=== PATIENT | female | born 1935 | race Caucasian/White ===

== ENCOUNTER 2021-06-07 13:10 | Inpatient (IN) | payer OTHER, MEDICARE ==
[2021-06-07 14:22] LABS: #Basophils 0.1 10x3/uL (0.0-0.2); #Eosinphils 0.2 10x3/uL (0.0-0.5); #Monocytes 0.3 10x3/uL (0.0-1.1); #Neutrophils 3.2 10x3/uL (1.5-8.4); %Basophils 2.5 % (0.0-2.0); %Eosinophils 4.2 % (0.0-6.0); %Monocytes 6.9 % (0.0-10.0); %Neutrophils 71.2 % (40.0-75.0); Hemoglobin 12.5 g/dL (12.0-15.5); Mean Corpuscular HGB CONC 30.1 g/dL (32.0-36.0); Mean Corpuscular Volume 89.6 fl (81.6-98.3); Platelet Count 85 10x3/uL (150-450); RBC Distribution Width 18.1 % (11.5-14.5); Red Blood Cell (RBC) Count 4.63 10x6/uL (3.90-5.03); White Blood Cell (WBC) Count 4.5 10x3/uL (3.5-10.5)
[2021-06-07 14:28] LABS: ALT (SGPT) 9 U/L (8-55); AST (SGOT) 22 U/L (5-34); Albumin 3.8 g/dL (3.4-4.8); Alkaline Phosphatase 128 U/L (40-110); Anion Gap 14 mmol/L (10-20); BUN (Urea Nitrogen) 32 mg/dL (9.8-20.1); Calc. Creatinine Clearance 0 mL/min (70-130); Calcium 9.6 mg/dL (7.8-10.44); Carbon Dioxide 25 mmol/L (23-31); Chloride 102 mmol/L (98-107); Globulin 3.3 g/dL (2.4-3.5); Glucose 135 mg/dL (83-110); Potassium 5.4 mmol/L (3.5-5.1); Protein, Total 7.1 g/dL (5.8-8.1); Sodium 136 mmol/L (136-145)
[2021-06-07] MEDS ORDERED: predniSONE 20 MG TAB ONE (15:29)
[2021-06-07] MEDS ORDERED: Furosemide 40 MG/4 ML VIAL ONE (15:30)
[2021-06-07] MEDS ORDERED: Gabapentin 300 MG CAP PO PRN (16:06)
[2021-06-07] MEDS ORDERED: Ondansetron PF 4 MG/2 ML Vial IVP PRN (16:10)
[2021-06-07] MEDS: hydrALAZINE 25 MG TAB PO SCH (20:23)
[2021-06-07] MEDS: Melatonin 3 MG TAB PO SCH (20:25)
[2021-06-07] MEDS ORDERED: Losartan Potassium 50 MG TAB PO SCH (21:00)
[2021-06-07 21:29] LABS: SARS-CoV-2 NAA Rapid Test Not Detected (NotDetected)
[2021-06-08] MEDS: Levothyroxine Sodium 75 MCG TAB PO SCH (05:02)
[2021-06-08] MEDS: Furosemide 40 MG/4 ML VIAL SLOW IVP SCH ×2 (05:03→14:22)
[2021-06-08 05:13] LABS: #Monocytes 0.1 10x3/uL (0.0-1.1); #Neutrophils 1.6 10x3/uL (1.5-8.4); %Eosinophils 0.5 % (0.0-6.0); %Lymphocytes 15.3 % (18.0-47.0); %Monocytes 2.6 % (0.0-10.0); %Neutrophils 79.6 % (40.0-75.0); Hemoglobin 12.6 g/dL (12.0-15.5); Mean Corpuscular Hemoglobin 27.1 pg (27.0-33.0); Mean Corpuscular Volume 87.5 fl (81.6-98.3); Mean Platelet Volume 11.2 fl (7.4-10.4); Platelet Count 94 10x3/uL (150-450); RBC Distribution Width 18.2 % (11.5-14.5); Red Blood Cell (RBC) Count 4.65 10x6/uL (3.90-5.03)
[2021-06-08 05:19] LABS: Anion Gap 13 mmol/L (10-20); BUN (Urea Nitrogen) 31 mg/dL (9.8-20.1); Calc. Creatinine Clearance 24 mL/min (70-130); Calcium 8.9 mg/dL (7.8-10.44); Carbon Dioxide 26 mmol/L (23-31); Chloride 102 mmol/L (98-107); Glucose 177 mg/dL (83-110); Potassium 5.4 mmol/L (3.5-5.1); Sodium 136 mmol/L (136-145)
[2021-06-08] MEDS ORDERED: hydrALAZINE 20 MG/ML VIAL SLOW IVP PRN (08:24)
[2021-06-08] MEDS ORDERED: Amlodipine 5 MG TAB PO SCH (09:00)
[2021-06-08] MEDS ORDERED: Dextrose 5% in Water 1,000 ML IV PRN (10:48)
[2021-06-08] MEDS ORDERED: Dextrose 50% Abboject 50 ML SYRINGE SLOW IVP PRN (10:48)
[2021-06-08] MEDS: hydrALAZINE 25 MG TAB PO SCH ×2 (11:33→21:10)
[2021-06-08] MEDS: Atorvastatin Calcium 40 MG TAB PO SCH (11:39)
[2021-06-08] MEDS: Aspirin 81 mg Enteric Coated Tablet PO SCH (11:40)
[2021-06-08] MEDS: Lidocaine 5% Patch TD SCH (11:41)
[2021-06-08] MEDS: methylPREDNISolone Sod Succ 40 MG VIAL IVP SCH ×3 (11:58→23:18)
[2021-06-08] MEDS ORDERED: methylPREDNISolone Sod Succ 40 MG VIAL IVP SCH (12:00)
[2021-06-08] MEDS: HYDROcodone/Acetaminophen 5/325 mg Tablet PO PRN (14:22)
[2021-06-08] MEDS ORDERED: hydrALAZINE 25 MG TAB PO SCH (14:30)
[2021-06-08 16:41] LABS: Potassium 5.3 mmol/L (3.5-5.1)
[2021-06-08 20:26] LABS: Anion Gap 18 mmol/L (10-20); BUN (Urea Nitrogen) 36 mg/dL (9.8-20.1); Calc. Creatinine Clearance 21 mL/min (70-130); Calcium 9.5 mg/dL (7.8-10.44); Carbon Dioxide 26 mmol/L (23-31); Chloride 96 mmol/L (98-107); Glucose 239 mg/dL (83-110); Potassium 5.2 mmol/L (3.5-5.1); Sodium 135 mmol/L (136-145)
[2021-06-08] MEDS: Melatonin 3 MG TAB PO SCH (21:10)
[2021-06-08] MEDS: Transdermal Patch Removal TOP SCH (21:17)
[2021-06-08] MEDS: HumaLOG 300 UNITS/3 ML VIAL SC PRN (21:49)
[2021-06-09 00:09] LABS: Anion Gap 15 mmol/L (10-20); BUN (Urea Nitrogen) 37 mg/dL (9.8-20.1); Calc. Creatinine Clearance 22 mL/min (70-130); Calcium 9.3 mg/dL (7.8-10.44); Carbon Dioxide 28 mmol/L (23-31); Chloride 97 mmol/L (98-107); Glucose 182 mg/dL (83-110); Potassium 4.9 mmol/L (3.5-5.1); Sodium 135 mmol/L (136-145)
[2021-06-09] MEDS: Acetaminophen 325 MG TAB PO PRN (03:11)
[2021-06-09 05:04] LABS: #Monocytes 0.1 10x3/uL (0.0-1.1); #Neutrophils 2.3 10x3/uL (1.5-8.4); %Monocytes 1.9 % (0.0-10.0); %Neutrophils 84.7 % (40.0-75.0); Hemoglobin 13.4 g/dL (12.0-15.5); Mean Corpuscular Hemoglobin 27.2 pg (27.0-33.0); Mean Platelet Volume 11.4 fl (7.4-10.4); Platelet Count 121 10x3/uL (150-450); RBC Distribution Width 18.7 % (11.5-14.5); Red Blood Cell (RBC) Count 4.93 10x6/uL (3.90-5.03); White Blood Cell (WBC) Count 2.7 10x3/uL (3.5-10.5)
[2021-06-09 05:07] LABS: Anion Gap 18 mmol/L (10-20); BUN (Urea Nitrogen) 35 mg/dL (9.8-20.1); Calc. Creatinine Clearance 25 mL/min (70-130); Calcium 8.9 mg/dL (7.8-10.44); Carbon Dioxide 23 mmol/L (23-31); Chloride 98 mmol/L (98-107); Glucose 149 mg/dL (83-110); Potassium 4.2 mmol/L (3.5-5.1); Sodium 135 mmol/L (136-145)
[2021-06-09] MEDS: Levothyroxine Sodium 75 MCG TAB PO SCH (05:12)
[2021-06-09] MEDS: Furosemide 40 MG/4 ML VIAL SLOW IVP SCH ×2 (05:14→14:03)
[2021-06-09] MEDS: methylPREDNISolone Sod Succ 40 MG VIAL IVP SCH ×3 (05:15→18:10)
[2021-06-09 05:46] VITALS: BMI 25.2
[2021-06-09] MEDS: hydrALAZINE 25 MG TAB PO SCH ×2 (08:29→15:19)
[2021-06-09] MEDS: Amlodipine 10 MG TAB PO SCH (08:29)
[2021-06-09] MEDS: Aspirin 81 mg Enteric Coated Tablet PO SCH (08:29)
[2021-06-09] MEDS: HYDROcodone/Acetaminophen 5/325 mg Tablet PO PRN (08:29)
[2021-06-09] MEDS: Atorvastatin Calcium 40 MG TAB PO SCH (08:29)
[2021-06-09] MEDS: Lidocaine 5% Patch TD SCH (08:30)
[2021-06-09] MEDS: HumaLOG 300 UNITS/3 ML VIAL SC PRN ×2 (11:55→18:09)
[2021-06-09 12:46] LABS: Hemoglobin A1c 6.5 % (4.0-6.0)
[2021-06-09] MEDS: Melatonin 3 MG TAB PO SCH (20:39)
[2021-06-09] MEDS: Transdermal Patch Removal TOP SCH (21:02)
[2021-06-10] MEDS: methylPREDNISolone Sod Succ 40 MG VIAL IVP SCH ×2 (00:03→05:45)
[2021-06-10] MEDS: hydrALAZINE 25 MG TAB PO SCH ×4 (00:38→16:07)
[2021-06-10] MEDS: Acetaminophen 325 MG TAB PO PRN (01:33)
[2021-06-10 04:57] LABS: #Monocytes 0.1 10x3/uL (0.0-1.1); #Neutrophils 3.8 10x3/uL (1.5-8.4); %Lymphocytes 6.5 % (18.0-47.0); %Monocytes 1.4 % (0.0-10.0); %Neutrophils 91.4 % (40.0-75.0); Hemoglobin 13.2 g/dL (12.0-15.5); Mean Corpuscular HGB CONC 32.5 g/dL (32.0-36.0); Mean Corpuscular Hemoglobin 26.9 pg (27.0-33.0); Mean Corpuscular Volume 82.9 fl (81.6-98.3); Mean Platelet Volume 10.4 fl (7.4-10.4); Platelet Count 137 10x3/uL (150-450); RBC Distribution Width 18.1 % (11.5-14.5); White Blood Cell (WBC) Count 4.2 10x3/uL (3.5-10.5)
[2021-06-10 05:17] LABS: Anion Gap 17 mmol/L (10-20); BUN (Urea Nitrogen) 47 mg/dL (9.8-20.1); Calc. Creatinine Clearance 22 mL/min (70-130); Carbon Dioxide 26 mmol/L (23-31); Chloride 95 mmol/L (98-107); Glucose 176 mg/dL (83-110); Potassium 3.3 mmol/L (3.5-5.1); Sodium 135 mmol/L (136-145)
[2021-06-10] MEDS: Furosemide 40 MG/4 ML VIAL SLOW IVP SCH (05:45)
[2021-06-10] MEDS: HumaLOG 300 UNITS/3 ML VIAL SC PRN ×2 (05:45→12:17)
[2021-06-10] MEDS: Levothyroxine Sodium 75 MCG TAB PO SCH (05:45)
[2021-06-10] MEDS: Atorvastatin Calcium 40 MG TAB PO SCH (09:36)
[2021-06-10] MEDS: Lidocaine 5% Patch TD SCH (09:36)
[2021-06-10] MEDS: Amlodipine 10 MG TAB PO SCH (09:36)
[2021-06-10] MEDS: Aspirin 81 mg Enteric Coated Tablet PO SCH (09:36)
[2021-06-10 15:16] VITALS: BP 113/58; TEMP 98.7
[2021-06-11] MEDS ORDERED: Furosemide 40 MG TAB PO SCH (07:30)
[2021-06-11] MEDS ORDERED: predniSONE 20 MG TAB PO SCH (08:00)
== END 2021-06-10 18:00 | disposition home health service (06) | DRG 291 ==
LOC: CSHERS 13:10 → CSHTELE 16:40
PROVIDERS: ADMIT Internal Medicine; ATTEND Hospitalist
DX: I13.0 Hypertensive heart and chronic kidney disease with heart failure and stage 1 through stage 4 chronic kidney disease, or unspecified chronic kidney disease (principal); J96.21 Acute and chronic respiratory failure with hypoxia; I50.33 Acute on chronic diastolic (congestive) heart failure; J44.1 Chronic obstructive pulmonary disease with (acute) exacerbation; N18.4 Chronic kidney disease, stage 4 (severe); N17.9 Acute kidney failure, unspecified; E78.5 Hyperlipidemia, unspecified; E11.22 Type 2 diabetes mellitus with diabetic chronic kidney disease; G89.29 Other chronic pain; M19.90 Unspecified osteoarthritis, unspecified site; I25.10 Atherosclerotic heart disease of native coronary artery without angina pectoris; R21 Rash and other nonspecific skin eruption; S81.802A Unspecified open wound, left lower leg, initial encounter; S81.801A Unspecified open wound, right lower leg, initial encounter; M54.9 Dorsalgia, unspecified; D63.1 Anemia in chronic kidney disease; F17.210 Nicotine dependence, cigarettes, uncomplicated; E78.2 Mixed hyperlipidemia; Z96.642 Presence of left artificial hip joint; E03.9 Hypothyroidism, unspecified; M81.0 Age-related osteoporosis without current pathological fracture; Z20.822 Contact with and (suspected) exposure to COVID-19; Z90.49 Acquired absence of other specified parts of digestive tract; Z79.82 Long term (current) use of aspirin; Z79.899 Other long term (current) drug therapy; Z79.891 Long term (current) use of opiate analgesic; Z79.890 Hormone replacement therapy; Z90.710 Acquired absence of both cervix and uterus; Z90.89 Acquired absence of other organs; Z86.73 Personal history of transient ischemic attack (TIA), and cerebral infarction without residual deficits; Z82.49 Family history of ischemic heart disease and other diseases of the circulatory system; Z98.890 Other specified postprocedural states; Z99.81 Dependence on supplemental oxygen
CPT/HCPCS: 36415; 36416; 71045; 80048; 80053; 83036; 83605; 83880; 84484; 85025; 93005; 93306; 94640; 94760; 96374; J1815; J1940; J2405; J2920; J7512; J7620; U0002

== ENCOUNTER 2021-07-27 12:02 | Inpatient (IN) | payer MEDICARE, OTHER ==
[2021-07-27 12:52] LABS: #Basophils 0.1 10x3/uL (0.0-0.2); #Eosinphils 0.1 10x3/uL (0.0-0.5); #Monocytes 0.3 10x3/uL (0.0-1.1); #Neutrophils 2.2 10x3/uL (1.5-8.4); %Basophils 2.4 % (0.0-2.0); %Eosinophils 2.7 % (0.0-6.0); %Lymphocytes 26.6 % (18.0-47.0); %Monocytes 8.6 % (0.0-10.0); %Neutrophils 58.9 % (40.0-75.0); Hemoglobin 10.8 g/dL (12.0-15.5); Mean Corpuscular HGB CONC 32.1 g/dL (32.0-36.0); Mean Corpuscular Hemoglobin 27.4 pg (27.0-33.0); Mean Corpuscular Volume 85.3 fl (81.6-98.3); Platelet Count 104 10x3/uL (150-450); RBC Distribution Width 18.4 % (11.5-14.5); Red Blood Cell (RBC) Count 3.94 10x6/uL (3.90-5.03); White Blood Cell (WBC) Count 3.7 10x3/uL (3.5-10.5)
[2021-07-27 13:04] LABS: ALT (SGPT) 11 U/L (8-55); AST (SGOT) 19 U/L (5-34); Albumin 3.7 g/dL (3.4-4.8); Alkaline Phosphatase 126 U/L (40-110); Anion Gap 18 mmol/L (10-20); BUN (Urea Nitrogen) 52 mg/dL (9.8-20.1); Bilirubin, Total 0.8 mg/dL (0.2-1.2); Calc. Creatinine Clearance 0 mL/min (70-130); Calcium 8.8 mg/dL (7.8-10.44); Carbon Dioxide 22 mmol/L (23-31); Chloride 100 mmol/L (98-107); Globulin 2.4 g/dL (2.4-3.5); Glucose 112 mg/dL (83-110); Potassium 5.1 mmol/L (3.5-5.1); Protein, Total 6.1 g/dL (5.8-8.1); Sodium 135 mmol/L (136-145)
[2021-07-27 13:59] LABS: Magnesium 1.4 mg/dL (1.6-2.6)
[2021-07-27] MEDS ORDERED: Acetaminophen 325 MG TAB PO PRN (14:17)
[2021-07-27] MEDS ORDERED: Ondansetron PF 4 MG/2 ML Vial IVP PRN (14:17)
[2021-07-27] MEDS ORDERED: Ondansetron ODT 4 MG TAB PO PRN (14:17)
[2021-07-27] MEDS ORDERED: Furosemide 40 MG/4 ML VIAL ONE (14:29)
[2021-07-27] MEDS ORDERED: Magnesium 2 GM/50 ML(in water) 2 GM in Premix Bag 1 BAG IVPB SCH (15:00)
[2021-07-27] MEDS: Gabapentin 300 MG CAP PO SCH ×2 (15:47→20:28)
[2021-07-28 00:20] LABS: SARS-CoV-2 PCR by NAA Not Detected (NotDetected)
[2021-07-28 05:16] LABS: #Basophils 0.1 10x3/uL (0.0-0.2); #Eosinphils 0.1 10x3/uL (0.0-0.5); #Monocytes 0.3 10x3/uL (0.0-1.1); %Basophils 2.7 % (0.0-2.0); %Eosinophils 2.9 % (0.0-6.0); %Lymphocytes 32.4 % (18.0-47.0); %Monocytes 7.8 % (0.0-10.0); Hemoglobin 10.4 g/dL (12.0-15.5); Mean Corpuscular HGB CONC 32.2 g/dL (32.0-36.0); Mean Corpuscular Hemoglobin 27.5 pg (27.0-33.0); Mean Corpuscular Volume 85.4 fl (81.6-98.3); Mean Platelet Volume 10.6 fl (7.4-10.4); Platelet Count 122 10x3/uL (150-450); RBC Distribution Width 18.6 % (11.5-14.5); Red Blood Cell (RBC) Count 3.78 10x6/uL (3.90-5.03); White Blood Cell (WBC) Count 3.7 10x3/uL (3.5-10.5)
[2021-07-28 05:17] LABS: %Neutrophils 54.2 % (40.0-75.0)
[2021-07-28 05:25] LABS: Anion Gap 15 mmol/L (10-20); BUN (Urea Nitrogen) 48 mg/dL (9.8-20.1); Calc. Creatinine Clearance 18 mL/min (70-130); Calcium 8.7 mg/dL (7.8-10.44); Carbon Dioxide 26 mmol/L (23-31); Chloride 100 mmol/L (98-107); Glucose 98 mg/dL (83-110); Magnesium 1.8 mg/dL (1.6-2.6); Potassium 4.4 mmol/L (3.5-5.1); Sodium 137 mmol/L (136-145)
[2021-07-28] MEDS ORDERED: Levothyroxine Sodium 88 MCG TAB PO SCH (06:00)
[2021-07-28] MEDS ORDERED: Furosemide 40 MG/4 ML VIAL SLOW IVP SCH (09:00)
[2021-07-28] MEDS: Atorvastatin Calcium 40 MG TAB PO SCH (09:16)
[2021-07-28] MEDS: Furosemide 40 MG/4 ML VIAL SLOW IVP SCH (09:16)
[2021-07-28] MEDS: Aspirin 81 mg Enteric Coated Tablet PO SCH (09:16)
[2021-07-28] MEDS: Gabapentin 300 MG CAP PO SCH ×3 (09:16→20:16)
[2021-07-28] MEDS ORDERED: hydrALAZINE 20 MG/ML VIAL SLOW IVP PRN (12:12)
[2021-07-28 12:45] LABS: Base Excess (BEa) -0.9 mEq/L (-2.0 to +3.0); CO2 Tension 41.1 mmHg (35.0-45.0); Calcium, Ionized (arterial) 1.16 mmol/L (1.12-1.30); Carboxyhemoglobin (COHb) 1.1 gm% (0.0-3.0); Hemoglobin (Hb) 11.8 g/dL (12.0-16.0); O2 Tension (PaO2), arterial 80.1 mmHg (> 60.0); Potassium - ABG Lab 4.3 mmol/L (3.70-5.30); Puncture Site LBA; pH, Arterial 7.39 (7.35-7.45)
[2021-07-28 12:50] LABS: ALV-art Gradient 96.685 mmHg (0-20)
[2021-07-28] MEDS ORDERED: methylPREDNISolone Sod Succ/PF 125 MG/2 ML VIAL IVP SCH (13:00)
[2021-07-28] MEDS: hydrALAZINE 25 MG TAB PO SCH ×2 (15:54→20:15)
[2021-07-28] MEDS: methylPREDNISolone Sod Succ 40 MG VIAL IVP SCH ×2 (17:46→23:59)
[2021-07-29] MEDS: Levothyroxine Sodium 75 MCG TAB PO SCH (05:12)
[2021-07-29] MEDS: methylPREDNISolone Sod Succ 40 MG VIAL IVP SCH ×3 (05:12→18:40)
[2021-07-29 05:23] LABS: Anion Gap 14 mmol/L (10-20); BUN (Urea Nitrogen) 40 mg/dL (9.8-20.1); Calc. Creatinine Clearance 23 mL/min (70-130); Calcium 8.8 mg/dL (7.8-10.44); Carbon Dioxide 25 mmol/L (23-31); Chloride 100 mmol/L (98-107); Glucose 186 mg/dL (83-110); Potassium 4.3 mmol/L (3.5-5.1); Sodium 135 mmol/L (136-145)
[2021-07-29 05:31] LABS: %Lymphocytes 21.9 % (18.0-47.0); %Monocytes 1.3 % (0.0-10.0); Hemoglobin 12.3 g/dL (12.0-15.5); Mean Corpuscular HGB CONC 32.6 g/dL (32.0-36.0); Mean Corpuscular Hemoglobin 27.3 pg (27.0-33.0); Mean Corpuscular Volume 83.8 fl (81.6-98.3); Mean Platelet Volume 10.6 fl (7.4-10.4); Platelet Count 132 10x3/uL (150-450); RBC Distribution Width 18.5 % (11.5-14.5); White Blood Cell (WBC) Count 1.6 10x3/uL (3.5-10.5)
[2021-07-29 05:41] LABS: #Neutrophils 1.2 10x3/uL (1.5-8.4); %Neutrophils 76.8 % (40.0-75.0)
[2021-07-29] MEDS: Atorvastatin Calcium 40 MG TAB PO SCH (08:07)
[2021-07-29] MEDS: Furosemide 40 MG/4 ML VIAL SLOW IVP SCH (08:07)
[2021-07-29] MEDS: hydrALAZINE 25 MG TAB PO SCH ×3 (08:07→16:43)
[2021-07-29] MEDS: Amlodipine 10 MG TAB PO SCH (08:10)
[2021-07-29] MEDS: Gabapentin 300 MG CAP PO SCH ×3 (08:11→21:36)
[2021-07-29] MEDS: Aspirin 81 mg Enteric Coated Tablet PO SCH (08:11)
[2021-07-29 13:20] VITALS: BMI 24.5
[2021-07-30] MEDS: hydrALAZINE 25 MG TAB PO SCH ×3 (00:28→16:09)
[2021-07-30] MEDS: methylPREDNISolone Sod Succ 40 MG VIAL IVP SCH ×5 (00:50→23:32)
[2021-07-30 05:32] LABS: #Monocytes 0.1 10x3/uL (0.0-1.1); #Neutrophils 2.9 10x3/uL (1.5-8.4); %Monocytes 1.5 % (0.0-10.0); %Neutrophils 87.2 % (40.0-75.0); Hemoglobin 11.8 g/dL (12.0-15.5); Mean Corpuscular HGB CONC 32.7 g/dL (32.0-36.0); Mean Corpuscular Hemoglobin 27.2 pg (27.0-33.0); Mean Corpuscular Volume 83.2 fl (81.6-98.3); Mean Platelet Volume 9.9 fl (7.4-10.4); Platelet Count 138 10x3/uL (150-450); RBC Distribution Width 18.6 % (11.5-14.5); Red Blood Cell (RBC) Count 4.34 10x6/uL (3.90-5.03); White Blood Cell (WBC) Count 3.3 10x3/uL (3.5-10.5)
[2021-07-30 05:40] LABS: Anion Gap 13 mmol/L (10-20); BUN (Urea Nitrogen) 39 mg/dL (9.8-20.1); Calc. Creatinine Clearance 25 mL/min (70-130); Calcium 8.7 mg/dL (7.8-10.44); Carbon Dioxide 28 mmol/L (23-31); Chloride 98 mmol/L (98-107); Glucose 182 mg/dL (83-110); Potassium 4.1 mmol/L (3.5-5.1); Sodium 135 mmol/L (136-145)
[2021-07-30] MEDS: Levothyroxine Sodium 75 MCG TAB PO SCH (05:59)
[2021-07-30] MEDS: Furosemide 40 MG/4 ML VIAL SLOW IVP SCH (08:27)
[2021-07-30] MEDS: Gabapentin 300 MG CAP PO SCH ×3 (08:27→21:05)
[2021-07-30] MEDS: Amlodipine 10 MG TAB PO SCH (08:28)
[2021-07-30] MEDS: Aspirin 81 mg Enteric Coated Tablet PO SCH (08:28)
[2021-07-30] MEDS: Atorvastatin Calcium 40 MG TAB PO SCH (08:31)
[2021-07-30] MEDS ORDERED: Calcium Carbonate 500 MG ChewTAB PO PRN (18:48)
[2021-07-30] MEDS ORDERED: Famotidine 20 MG TAB PO SCH (21:00)
[2021-07-30] MEDS: Famotidine 20 MG TAB PO SCH ×2 (21:05→22:18)
[2021-07-31] MEDS: hydrALAZINE 25 MG TAB PO SCH ×4 (01:22→20:46)
[2021-07-31] MEDS ORDERED: Melatonin 3 MG TAB PO SCH (02:30)
[2021-07-31] MEDS: Levothyroxine Sodium 75 MCG TAB PO SCH (06:14)
[2021-07-31] MEDS: methylPREDNISolone Sod Succ 40 MG VIAL IVP SCH ×2 (07:00→18:01)
[2021-07-31] MEDS: Atorvastatin Calcium 40 MG TAB PO SCH (10:49)
[2021-07-31] MEDS: Gabapentin 300 MG CAP PO SCH ×3 (10:49→20:45)
[2021-07-31] MEDS: Furosemide 20 MG TAB PO SCH (10:49)
[2021-07-31] MEDS: Amlodipine 10 MG TAB PO SCH (10:50)
[2021-07-31] MEDS: Empagliflozin 10 MG TAB PO SCH (10:50)
[2021-07-31] MEDS: Aspirin 81 mg Enteric Coated Tablet PO SCH (10:50)
[2021-07-31] MEDS: Famotidine 20 MG TAB PO SCH (18:33)
[2021-08-01] MEDS: methylPREDNISolone Sod Succ 40 MG VIAL IVP SCH ×4 (01:45→21:42)
[2021-08-01] MEDS: Levothyroxine Sodium 75 MCG TAB PO SCH (05:40)
[2021-08-01] MEDS: Furosemide 20 MG TAB PO SCH (08:58)
[2021-08-01] MEDS: Atorvastatin Calcium 40 MG TAB PO SCH (08:58)
[2021-08-01] MEDS: hydrALAZINE 25 MG TAB PO SCH ×3 (08:58→21:42)
[2021-08-01] MEDS: Amlodipine 10 MG TAB PO SCH (08:59)
[2021-08-01] MEDS: Aspirin 81 mg Enteric Coated Tablet PO SCH (08:59)
[2021-08-01] MEDS: Gabapentin 300 MG CAP PO SCH ×3 (08:59→21:42)
[2021-08-01] MEDS: Empagliflozin 10 MG TAB PO SCH (09:01)
[2021-08-01] MEDS ORDERED: Melatonin 3 MG TAB PO PRN (20:43)
[2021-08-01] MEDS: Famotidine 20 MG TAB PO SCH (21:42)
[2021-08-02] MEDS: methylPREDNISolone Sod Succ 40 MG VIAL IVP SCH (06:21)
[2021-08-02] MEDS: Levothyroxine Sodium 75 MCG TAB PO SCH (06:21)
[2021-08-02 10:03] LABS: Anion Gap 15 mmol/L (10-20); BUN (Urea Nitrogen) 48 mg/dL (9.8-20.1); Calc. Creatinine Clearance 26 mL/min (70-130); Calcium 8.7 mg/dL (7.8-10.44); Carbon Dioxide 26 mmol/L (23-31); Chloride 98 mmol/L (98-107); Glucose 222 mg/dL (83-110); Potassium 4.1 mmol/L (3.5-5.1); Sodium 135 mmol/L (136-145)
[2021-08-02] MEDS: hydrALAZINE 25 MG TAB PO SCH (10:09)
[2021-08-02] MEDS: Aspirin 81 mg Enteric Coated Tablet PO SCH (10:09)
[2021-08-02] MEDS: Furosemide 20 MG TAB PO SCH (10:09)
[2021-08-02] MEDS: Atorvastatin Calcium 40 MG TAB PO SCH (10:09)
[2021-08-02] MEDS: Empagliflozin 10 MG TAB PO SCH (10:10)
[2021-08-02] MEDS: Amlodipine 10 MG TAB PO SCH (10:10)
[2021-08-02] MEDS: Gabapentin 300 MG CAP PO SCH (10:10)
[2021-08-02 12:06] VITALS: BP 130/59; TEMP 98.7
== END 2021-08-02 13:23 | DRG 291 ==
LOC: CSHERS 12:02 → CSHTELE 13:50 → OBSVTOIN 16:02
PROVIDERS: ADMIT Internal Medicine; ATTEND Internal Medicine
DX: I13.0 Hypertensive heart and chronic kidney disease with heart failure and stage 1 through stage 4 chronic kidney disease, or unspecified chronic kidney disease (principal); I50.33 Acute on chronic diastolic (congestive) heart failure; J96.21 Acute and chronic respiratory failure with hypoxia; J44.1 Chronic obstructive pulmonary disease with (acute) exacerbation; N17.9 Acute kidney failure, unspecified; N18.30 Chronic kidney disease, stage 3 unspecified; I25.10 Atherosclerotic heart disease of native coronary artery without angina pectoris; E78.5 Hyperlipidemia, unspecified; D63.1 Anemia in chronic kidney disease; E87.8 Other disorders of electrolyte and fluid balance, not elsewhere classified; E11.22 Type 2 diabetes mellitus with diabetic chronic kidney disease; D69.6 Thrombocytopenia, unspecified; M81.0 Age-related osteoporosis without current pathological fracture; K21.9 Gastro-esophageal reflux disease without esophagitis; R94.31 Abnormal electrocardiogram [ECG] [EKG]; G89.29 Other chronic pain; E89.0 Postprocedural hypothyroidism; I07.1 Rheumatic tricuspid insufficiency; F17.210 Nicotine dependence, cigarettes, uncomplicated; I27.20 Pulmonary hypertension, unspecified; Z96.642 Presence of left artificial hip joint; Z20.822 Contact with and (suspected) exposure to COVID-19; Z60.2 Problems related to living alone; Z99.81 Dependence on supplemental oxygen; Z79.899 Other long term (current) drug therapy; Z86.73 Personal history of transient ischemic attack (TIA), and cerebral infarction without residual deficits; Z79.890 Hormone replacement therapy; Z79.891 Long term (current) use of opiate analgesic; Z79.84 Long term (current) use of oral hypoglycemic drugs; Z79.82 Long term (current) use of aspirin; Z90.49 Acquired absence of other specified parts of digestive tract; Z90.710 Acquired absence of both cervix and uterus; Z98.890 Other specified postprocedural states; Z82.49 Family history of ischemic heart disease and other diseases of the circulatory system
CPT/HCPCS: 36415; 36416; 36600; 71045; 80048; 80053; 82805; 83735; 83880; 84484; 85025; 93005; 93010; 94640; 94760; 96374; G0378; J0360; J1940; J2920; J2930; J3475; J7620; U0003; U0005

== ENCOUNTER 2021-08-05 14:03 | Inpatient (IN) | payer OTHER ==
[2021-08-05] MEDS ORDERED: Acetaminophen 325 MG TAB PO PRN (16:27)
[2021-08-05] MEDS ORDERED: Ondansetron PF 4 MG/2 ML Vial IVP PRN (16:27)
[2021-08-05] MEDS ORDERED: Acetaminophen 650 MG Suppository PR PRN (16:27)
[2021-08-05] MEDS ORDERED: Ondansetron ODT 4 MG TAB PO PRN (16:27)
[2021-08-05] MEDS ORDERED: Dextrose 50% Abboject 50 ML SYRINGE SLOW IVP PRN (17:19)
[2021-08-05] MEDS ORDERED: Insulin Regular 300 UNITS/3 ML VIAL SC PRN (17:19)
[2021-08-05] MEDS ORDERED: Dextrose 5% in Water 1,000 ML IV PRN (17:19)
[2021-08-05] MEDS: Sodium Chloride 0.9% 1,000 ML IV SCH (18:00)
[2021-08-05 18:27] LABS: #Eosinphils 0.1 10x3/uL (0.0-0.5); #Monocytes 0.4 10x3/uL (0.0-1.1); %Basophils 0.1 % (0.0-2.0); %Eosinophils 1.2 % (0.0-6.0); %Lymphocytes 20.6 % (18.0-47.0); %Monocytes 5.7 % (0.0-10.0); %Neutrophils 72.3 % (40.0-75.0); Anion Gap 17 mmol/L (10-20); BUN (Urea Nitrogen) 54 mg/dL (9.8-20.1); Calc. Creatinine Clearance 0 mL/min (70-130); Calcium 8.7 mg/dL (7.8-10.44); Carbon Dioxide 23 mmol/L (23-31); Chloride 104 mmol/L (98-107); Glucose 106 mg/dL (83-110); Hemoglobin 9.6 g/dL (12.0-15.5); Mean Corpuscular Hemoglobin 26.4 pg (27.0-33.0); Mean Corpuscular Volume 87.9 fl (81.6-98.3); Mean Platelet Volume 10.2 fl (7.4-10.4); Platelet Count 117 10x3/uL (150-450); Potassium 4.1 mmol/L (3.5-5.1); RBC Distribution Width 17.4 % (11.5-14.5); Red Blood Cell (RBC) Count 3.64 10x6/uL (3.90-5.03); Sodium 140 mmol/L (136-145); White Blood Cell (WBC) Count 6.9 10x3/uL (3.5-10.5)
[2021-08-05] MEDS: Pantoprazole 40 MG VIAL IVP SCH (20:32)
[2021-08-05 20:52] VITALS: BMI 22.8
[2021-08-05 22:51] LABS: Hemoglobin 8.3 g/dL (12.0-15.5)
[2021-08-06 02:54] LABS: SARS-CoV-2 NAA Rapid Test Not Detected (NotDetected)
[2021-08-06 05:06] LABS: #Eosinphils 0.1 10x3/uL (0.0-0.5); #Monocytes 0.3 10x3/uL (0.0-1.1); #Neutrophils 4.2 10x3/uL (1.5-8.4); %Eosinophils 2.5 % (0.0-6.0); %Lymphocytes 16.4 % (18.0-47.0); %Monocytes 5.5 % (0.0-10.0); %Neutrophils 75.2 % (40.0-75.0); Hemoglobin 8.2 g/dL (12.0-15.5); Mean Corpuscular Hemoglobin 26.6 pg (27.0-33.0); Mean Corpuscular Volume 88.6 fl (81.6-98.3); Mean Platelet Volume 10.8 fl (7.4-10.4); Platelet Count 107 10x3/uL (150-450); RBC Distribution Width 17.5 % (11.5-14.5); Red Blood Cell (RBC) Count 3.08 10x6/uL (3.90-5.03); White Blood Cell (WBC) Count 5.6 10x3/uL (3.5-10.5)
[2021-08-06 05:19] LABS: Anion Gap 14 mmol/L (10-20); BUN (Urea Nitrogen) 46 mg/dL (9.8-20.1); Calc. Creatinine Clearance 28 mL/min (70-130); Calcium 8.6 mg/dL (7.8-10.44); Carbon Dioxide 24 mmol/L (23-31); Chloride 107 mmol/L (98-107); Glucose 98 mg/dL (83-110); Sodium 141 mmol/L (136-145)
[2021-08-06] MEDS: Sodium Chloride 0.9% 1,000 ML IV SCH (07:00)
[2021-08-06] MEDS ORDERED: PROPOFOL 20 ML ONE (08:38)
[2021-08-06] MEDS: Pantoprazole 40 MG VIAL IVP SCH ×2 (10:50→20:11)
[2021-08-06] MEDS ORDERED: Calcium Carbonate 500 MG ChewTAB PO PRN (12:25)
[2021-08-06] MEDS: hydrALAZINE 25 MG TAB PO SCH ×2 (18:18→20:10)
[2021-08-07 05:25] LABS: #Eosinphils 0.1 10x3/uL (0.0-0.5); #Monocytes 0.3 10x3/uL (0.0-1.1); #Neutrophils 3.1 10x3/uL (1.5-8.4); %Basophils 0.2 % (0.0-2.0); %Eosinophils 2.2 % (0.0-6.0); %Lymphocytes 23.8 % (18.0-47.0); %Monocytes 6.1 % (0.0-10.0); %Neutrophils 67.3 % (40.0-75.0); Hemoglobin 7.1 g/dL (12.0-15.5); Mean Corpuscular HGB CONC 30.7 g/dL (32.0-36.0); Mean Corpuscular Hemoglobin 26.9 pg (27.0-33.0); Mean Corpuscular Volume 87.5 fl (81.6-98.3); Mean Platelet Volume 10.3 fl (7.4-10.4); Platelet Count 106 10x3/uL (150-450); RBC Distribution Width 17.4 % (11.5-14.5); Red Blood Cell (RBC) Count 2.64 10x6/uL (3.90-5.03); White Blood Cell (WBC) Count 4.6 10x3/uL (3.5-10.5)
[2021-08-07 05:40] LABS: Anion Gap 13 mmol/L (10-20); BUN (Urea Nitrogen) 26 mg/dL (9.8-20.1); Calc. Creatinine Clearance 33 mL/min (70-130); Calcium 8.4 mg/dL (7.8-10.44); Carbon Dioxide 22 mmol/L (23-31); Chloride 107 mmol/L (98-107); Glucose 117 mg/dL (83-110); Potassium 3.9 mmol/L (3.5-5.1); Sodium 138 mmol/L (136-145)
[2021-08-07] MEDS: Atorvastatin Calcium 40 MG TAB PO SCH (08:25)
[2021-08-07] MEDS: Levothyroxine Sodium 88 MCG TAB PO SCH (08:25)
[2021-08-07] MEDS: Amlodipine 10 MG TAB PO SCH (08:26)
[2021-08-07] MEDS: Pantoprazole 40 MG VIAL IVP SCH ×2 (08:26→20:33)
[2021-08-07] MEDS: hydrALAZINE 25 MG TAB PO SCH ×3 (08:26→20:33)
[2021-08-08 05:40] LABS: #Eosinphils 0.1 10x3/uL (0.0-0.5); #Monocytes 0.3 10x3/uL (0.0-1.1); %Basophils 0.2 % (0.0-2.0); %Eosinophils 1.7 % (0.0-6.0); %Lymphocytes 17.8 % (18.0-47.0); %Monocytes 6.6 % (0.0-10.0); %Neutrophils 73.5 % (40.0-75.0); Hemoglobin 9.5 g/dL (12.0-15.5); Mean Corpuscular HGB CONC 31.4 g/dL (32.0-36.0); Mean Corpuscular Hemoglobin 27.2 pg (27.0-33.0); Mean Corpuscular Volume 86.8 fl (81.6-98.3); Mean Platelet Volume 10.1 fl (7.4-10.4); Platelet Count 107 10x3/uL (150-450); RBC Distribution Width 16.8 % (11.5-14.5); Red Blood Cell (RBC) Count 3.49 10x6/uL (3.90-5.03); White Blood Cell (WBC) Count 4.1 10x3/uL (3.5-10.5)
[2021-08-08 05:50] LABS: Anion Gap 13 mmol/L (10-20); BUN (Urea Nitrogen) 17 mg/dL (9.8-20.1); Calc. Creatinine Clearance 33 mL/min (70-130); Calcium 8.8 mg/dL (7.8-10.44); Carbon Dioxide 22 mmol/L (23-31); Chloride 106 mmol/L (98-107); Glucose 119 mg/dL (83-110); Potassium 4.3 mmol/L (3.5-5.1); Sodium 137 mmol/L (136-145)
[2021-08-08] MEDS: Atorvastatin Calcium 40 MG TAB PO SCH (08:36)
[2021-08-08] MEDS: Pantoprazole 40 MG VIAL IVP SCH (08:36)
[2021-08-08] MEDS: hydrALAZINE 25 MG TAB PO SCH (08:36)
[2021-08-08] MEDS: Levothyroxine Sodium 88 MCG TAB PO SCH (08:36)
[2021-08-08] MEDS: Amlodipine 10 MG TAB PO SCH (08:36)
[2021-08-08 12:04] VITALS: BP 146/65; TEMP 97.6
== END 2021-08-08 15:43 | disposition home or self-care (01) | DRG 378 ==
LOC: OBSVTOIN 14:03 → CSHTELE 14:03
PROVIDERS: ADMIT Hospitalist; ATTEND Hospitalist
PROC: 0DB78ZX Excision of Stomach, Pylorus, Via Natural or Artificial Opening Endoscopic, Diagnostic (ICD-10-PCS; principal; 2021-08-06)
PROC: 30233N1 Transfusion of Nonautologous Red Blood Cells into Peripheral Vein, Percutaneous Approach (ICD-10-PCS; 2021-08-07)
DX: K26.4 Chronic or unspecified duodenal ulcer with hemorrhage (principal); D62 Acute posthemorrhagic anemia; I50.32 Chronic diastolic (congestive) heart failure; I13.0 Hypertensive heart and chronic kidney disease with heart failure and stage 1 through stage 4 chronic kidney disease, or unspecified chronic kidney disease; J96.10 Chronic respiratory failure, unspecified whether with hypoxia or hypercapnia; N18.30 Chronic kidney disease, stage 3 unspecified; J44.9 Chronic obstructive pulmonary disease, unspecified; E11.22 Type 2 diabetes mellitus with diabetic chronic kidney disease; E03.9 Hypothyroidism, unspecified; F03.90 Unspecified dementia, unspecified severity, without behavioral disturbance, psychotic disturbance, mood disturbance, and anxiety; Z20.822 Contact with and (suspected) exposure to COVID-19; K25.9 Gastric ulcer, unspecified as acute or chronic, without hemorrhage or perforation; I25.10 Atherosclerotic heart disease of native coronary artery without angina pectoris; Z96.642 Presence of left artificial hip joint; K44.9 Diaphragmatic hernia without obstruction or gangrene; E78.5 Hyperlipidemia, unspecified; Z86.73 Personal history of transient ischemic attack (TIA), and cerebral infarction without residual deficits; Z79.890 Hormone replacement therapy; Z79.899 Other long term (current) drug therapy; Z79.82 Long term (current) use of aspirin; Z79.891 Long term (current) use of opiate analgesic; Z99.81 Dependence on supplemental oxygen; Z90.49 Acquired absence of other specified parts of digestive tract; Z90.710 Acquired absence of both cervix and uterus; Z90.89 Acquired absence of other organs; Z87.891 Personal history of nicotine dependence
CPT/HCPCS: 36415; 36416; 36430; 80048; 85025; 86850; 86900; 86901; 88305; 88342; 94760; C9113; J2704; J7050; P9016; U0002

== ENCOUNTER 2021-08-23 14:55 | Inpatient (IN) | payer OTHER ==
[2021-08-23 15:43] LABS: #Monocytes 0.3 10x3/uL (0.0-1.1); #Neutrophils 2.7 10x3/uL (1.5-8.4); %Basophils 0.8 % (0.0-2.0); %Eosinophils 0.8 % (0.0-6.0); %Lymphocytes 16.6 % (18.0-47.0); %Monocytes 7.9 % (0.0-10.0); %Neutrophils 73.4 % (40.0-75.0); Mean Corpuscular HGB CONC 31.4 g/dL (32.0-36.0); Mean Corpuscular Hemoglobin 26.8 pg (27.0-33.0); Mean Corpuscular Volume 85.4 fl (81.6-98.3); Platelet Count 169 10x3/uL (150-450); RBC Distribution Width 18.3 % (11.5-14.5); Red Blood Cell (RBC) Count 2.61 10x6/uL (3.90-5.03); White Blood Cell (WBC) Count 3.7 10x3/uL (3.5-10.5)
[2021-08-23 15:51] LABS: ALT (SGPT) 10 U/L (8-55); AST (SGOT) 15 U/L (5-34); Albumin 3.8 g/dL (3.4-4.8); Alkaline Phosphatase 97 U/L (40-110); Anion Gap 15 mmol/L (10-20); BUN (Urea Nitrogen) 39 mg/dL (9.8-20.1); Bilirubin, Total 0.5 mg/dL (0.2-1.2); Calc. Creatinine Clearance 0 mL/min (70-130); Calcium 8.9 mg/dL (7.8-10.44); Carbon Dioxide 25 mmol/L (23-31); Chloride 102 mmol/L (98-107); Globulin 2.4 g/dL (2.4-3.5); Glucose 142 mg/dL (83-110); Potassium 4.5 mmol/L (3.5-5.1); Protein, Total 6.2 g/dL (5.8-8.1); Sodium 137 mmol/L (136-145)
[2021-08-23] MEDS ORDERED: Furosemide 40 MG/4 ML VIAL ONE (16:38)
[2021-08-23 17:36] LABS: Bilirubin Neg (Negative); Blood, Urine Negative (Negative); Clarity Clear (Clear); Glucose, Urine (Dipstick) 250 mg/dL (Negative); Ketone, Urine Negative (Negative); Leukocyte Negative (Negative); Nitrite Negative (Negative); Protein, Urine (Dipstick) Negative (Neg-Trace); Specific Gravity, Urine 1.005 (1.002-1.036); Urobilinogen Normal mg/dL (Less than 2); pH, Urine 6.5 (5.0-9.0)
[2021-08-23] MEDS ORDERED: Acetaminophen 325 MG TAB PO PRN (17:38)
[2021-08-23] MEDS ORDERED: Ondansetron PF 4 MG/2 ML Vial IVP PRN (17:38)
[2021-08-23] MEDS ORDERED: HYDROcodone/Acetaminophen 5/325 mg Tablet PO PRN (17:38)
[2021-08-23] MEDS ORDERED: Ondansetron ODT 4 MG TAB PO PRN (17:38)
[2021-08-23 17:50] LABS: SARS-CoV-2 NAA Rapid Test Not Detected (NotDetected)
[2021-08-23] MEDS ORDERED: Docusate 100 MG CAP PO PRN (18:20)
[2021-08-23] MEDS ORDERED: Non-Formulary Medication 1 EACH (Esomeprazole Magnesium [Nexium] 20 MG Capsule.Dr) PO SCH (21:00)
[2021-08-23] MEDS: hydrALAZINE 25 MG TAB PO SCH (22:37)
[2021-08-23] MEDS: Gabapentin 300 MG CAP PO SCH (22:37)
[2021-08-24 05:09] LABS: Mean Corpuscular Volume 87.7 fl (81.6-98.3)
[2021-08-24 05:10] LABS: Mean Platelet Volume 9.8 fl (7.4-10.4); Platelet Count 196 10x3/uL (150-450)
[2021-08-24 05:11] LABS: #Eosinphils 0.1 10x3/uL (0.0-0.5); #Monocytes 0.3 10x3/uL (0.0-1.1); #Neutrophils 2.4 10x3/uL (1.5-8.4); %Basophils 1.2 % (0.0-2.0); %Eosinophils 1.8 % (0.0-6.0); %Lymphocytes 17.4 % (18.0-47.0); %Monocytes 8.6 % (0.0-10.0); %Neutrophils 70.7 % (40.0-75.0); Hemoglobin 8.5 g/dL (12.0-15.5); Mean Corpuscular HGB CONC 32.3 g/dL (32.0-36.0); Mean Corpuscular Hemoglobin 28.3 pg (27.0-33.0); RBC Distribution Width 17.6 % (11.5-14.5); White Blood Cell (WBC) Count 3.4 10x3/uL (3.5-10.5)
[2021-08-24 05:30] LABS: ALT (SGPT) 6 U/L (8-55); AST (SGOT) 14 U/L (5-34); Albumin 3.6 g/dL (3.4-4.8); Alkaline Phosphatase 97 U/L (40-110); Anion Gap 17 mmol/L (10-20); BUN (Urea Nitrogen) 33 mg/dL (9.8-20.1); Bilirubin, Total 0.9 mg/dL (0.2-1.2); Calc. Creatinine Clearance 0 mL/min (70-130); Carbon Dioxide 23 mmol/L (23-31); Chloride 101 mmol/L (98-107); Globulin 2.8 g/dL (2.4-3.5); Glucose 121 mg/dL (83-110); Potassium 3.7 mmol/L (3.5-5.1); Protein, Total 6.4 g/dL (5.8-8.1); Sodium 137 mmol/L (136-145)
[2021-08-24] MEDS: Furosemide 40 MG/4 ML VIAL SLOW IVP SCH ×2 (05:37→13:56)
[2021-08-24] MEDS: Levothyroxine Sodium 88 MCG TAB PO SCH (06:47)
[2021-08-24] MEDS ORDERED: Pantoprazole 40 MG VIAL ONE ×2 (08:03)
[2021-08-24] MEDS ORDERED: Enoxaparin Sodium 30 MG/0.3 ML SYRINGE SC SCH (09:00)
[2021-08-24] MEDS ORDERED: Pantoprazole 40 MG VIAL IVP SCH (09:00)
[2021-08-24] MEDS: Atorvastatin Calcium 40 MG TAB PO SCH (09:50)
[2021-08-24] MEDS: hydrALAZINE 25 MG TAB PO SCH ×3 (09:50→21:52)
[2021-08-24] MEDS: Amlodipine 10 MG TAB PO SCH (09:50)
[2021-08-24] MEDS: Empagliflozin 10 MG TAB PO SCH (09:51)
[2021-08-24] MEDS: Gabapentin 300 MG CAP PO SCH ×2 (09:51→20:39)
[2021-08-24 13:29] VITALS: BMI 20.2
[2021-08-24] MEDS ORDERED: Electrolyte Replacement Protocol 1 EACH FS PRN (16:15)
[2021-08-24] MEDS ORDERED: diphenhydrAMINE 25 MG CAP PO PRN (16:41)
[2021-08-24] MEDS ORDERED: Acetaminophen 500 MG TAB PO PRN (16:41)
[2021-08-25 04:30] LABS: Magnesium 1.3 mg/dL (1.6-2.6); Phosphorus 2.7 mg/dL (2.3-4.7)
[2021-08-25 04:41] LABS: Free T4 (Free Thyroxine) 1.11 ng/dL (0.70-1.48); Thyroid Stimulating Hormone 1.4531 uIU/mL (0.35-4.94)
[2021-08-25] MEDS: Furosemide 40 MG/4 ML VIAL SLOW IVP SCH (05:30)
[2021-08-25] MEDS: Levothyroxine Sodium 88 MCG TAB PO SCH (05:30)
[2021-08-25] MEDS ORDERED: Magnesium 2 GM/50 ML BAG (IN WATER) ONE (06:18)
[2021-08-25] MEDS: Magnesium 2 GM/50 ML(in water) 2 GM in Premix Bag 1 BAG IVPB SCH ×2 (06:18→07:36)
[2021-08-25 09:14] LABS: #Basophils 0.1 10x3/uL (0.0-0.2); #Eosinphils 0.1 10x3/uL (0.0-0.5); #Monocytes 0.4 10x3/uL (0.0-1.1); #Neutrophils 2.1 10x3/uL (1.5-8.4); %Basophils 1.5 % (0.0-2.0); %Eosinophils 2.1 % (0.0-6.0); %Lymphocytes 22.3 % (18.0-47.0); %Neutrophils 62.8 % (40.0-75.0); Hemoglobin 9.8 g/dL (12.0-15.5); Mean Corpuscular HGB CONC 31.2 g/dL (32.0-36.0); Mean Corpuscular Hemoglobin 27.5 pg (27.0-33.0); Mean Corpuscular Volume 88.2 fl (81.6-98.3); Mean Platelet Volume 10.4 fl (7.4-10.4); Platelet Count 184 10x3/uL (150-450); RBC Distribution Width 18.1 % (11.5-14.5); Red Blood Cell (RBC) Count 3.56 10x6/uL (3.90-5.03); White Blood Cell (WBC) Count 3.4 10x3/uL (3.5-10.5)
[2021-08-25 09:34] LABS: Anion Gap 17 mmol/L (10-20); BUN (Urea Nitrogen) 31 mg/dL (9.8-20.1); Calc. Creatinine Clearance 20 mL/min (70-130); Calcium 9.6 mg/dL (7.8-10.44); Carbon Dioxide 29 mmol/L (23-31); Chloride 94 mmol/L (98-107); Glucose 154 mg/dL (83-110); Potassium 3.2 mmol/L (3.5-5.1); Sodium 137 mmol/L (136-145)
[2021-08-25] MEDS: Aspirin 81 mg Enteric Coated Tablet PO SCH (10:03)
[2021-08-25] MEDS: hydrALAZINE 25 MG TAB PO SCH ×3 (10:03→20:49)
[2021-08-25] MEDS: Amlodipine 10 MG TAB PO SCH (10:03)
[2021-08-25] MEDS: Empagliflozin 10 MG TAB PO SCH (10:03)
[2021-08-25] MEDS: Atorvastatin Calcium 40 MG TAB PO SCH (10:03)
[2021-08-25] MEDS: Gabapentin 300 MG CAP PO SCH ×2 (10:03→20:49)
[2021-08-25] MEDS ORDERED: Potassium Chloride 20 MEQ TAB PO SCH (10:30)
[2021-08-25] MEDS ORDERED: NEXIUM 20 MG PO SCH (12:30)
[2021-08-26] MEDS: Levothyroxine Sodium 88 MCG TAB PO SCH (06:05)
[2021-08-26] MEDS: Furosemide 40 MG/4 ML VIAL SLOW IVP SCH (06:05)
[2021-08-26] MEDS: Aspirin 81 mg Enteric Coated Tablet PO SCH (07:28)
[2021-08-26] MEDS: NEXIUM 20 MG PO SCH (07:28)
[2021-08-26] MEDS: Atorvastatin Calcium 40 MG TAB PO SCH (07:29)
[2021-08-26] MEDS: Amlodipine 10 MG TAB PO SCH (07:29)
[2021-08-26] MEDS: Gabapentin 300 MG CAP PO SCH ×2 (07:29→21:19)
[2021-08-26] MEDS: Empagliflozin 10 MG TAB PO SCH (07:29)
[2021-08-26] MEDS: hydrALAZINE 25 MG TAB PO SCH ×3 (07:30→21:20)
[2021-08-26 09:23] LABS: #Basophils 0.1 10x3/uL (0.0-0.2); #Eosinphils 0.1 10x3/uL (0.0-0.5); #Monocytes 0.5 10x3/uL (0.0-1.1); #Neutrophils 2.6 10x3/uL (1.5-8.4); %Basophils 1.6 % (0.0-2.0); %Eosinophils 2.1 % (0.0-6.0); %Lymphocytes 23.3 % (18.0-47.0); %Monocytes 11.2 % (0.0-10.0); %Neutrophils 61.3 % (40.0-75.0); Hemoglobin 11.2 g/dL (12.0-15.5); Mean Corpuscular HGB CONC 31.6 g/dL (32.0-36.0); Mean Corpuscular Hemoglobin 27.7 pg (27.0-33.0); Mean Corpuscular Volume 87.4 fl (81.6-98.3); Mean Platelet Volume 9.8 fl (7.4-10.4); Platelet Count 232 10x3/uL (150-450); RBC Distribution Width 17.8 % (11.5-14.5); Red Blood Cell (RBC) Count 4.05 10x6/uL (3.90-5.03); White Blood Cell (WBC) Count 4.3 10x3/uL (3.5-10.5)
[2021-08-26 09:35] LABS: Anion Gap 16 mmol/L (10-20); BUN (Urea Nitrogen) 32 mg/dL (9.8-20.1); Calc. Creatinine Clearance 21 mL/min (70-130); Calcium 9.8 mg/dL (7.8-10.44); Carbon Dioxide 29 mmol/L (23-31); Chloride 94 mmol/L (98-107); Glucose 132 mg/dL (83-110); Potassium 4.3 mmol/L (3.5-5.1); Sodium 135 mmol/L (136-145)
[2021-08-27] MEDS: Furosemide 40 MG/4 ML VIAL SLOW IVP SCH (05:59)
[2021-08-27] MEDS: Levothyroxine Sodium 88 MCG TAB PO SCH (06:00)
[2021-08-27 09:32] LABS: #Basophils 0.1 10x3/uL (0.0-0.2); #Eosinphils 0.1 10x3/uL (0.0-0.5); #Monocytes 0.4 10x3/uL (0.0-1.1); #Neutrophils 2.5 10x3/uL (1.5-8.4); %Basophils 1.6 % (0.0-2.0); %Eosinophils 2.2 % (0.0-6.0); %Lymphocytes 18.5 % (18.0-47.0); %Monocytes 10.3 % (0.0-10.0); %Neutrophils 67.1 % (40.0-75.0); Hemoglobin 11.2 g/dL (12.0-15.5); Mean Corpuscular HGB CONC 30.6 g/dL (32.0-36.0); Mean Corpuscular Volume 88.2 fl (81.6-98.3); Mean Platelet Volume 9.8 fl (7.4-10.4); Platelet Count 239 10x3/uL (150-450); RBC Distribution Width 17.4 % (11.5-14.5); Red Blood Cell (RBC) Count 4.15 10x6/uL (3.90-5.03); White Blood Cell (WBC) Count 3.7 10x3/uL (3.5-10.5)
[2021-08-27] MEDS: hydrALAZINE 25 MG TAB PO SCH ×3 (09:32→20:48)
[2021-08-27] MEDS: Gabapentin 300 MG CAP PO SCH ×2 (09:32→20:48)
[2021-08-27] MEDS: Empagliflozin 10 MG TAB PO SCH (09:32)
[2021-08-27] MEDS: Atorvastatin Calcium 40 MG TAB PO SCH (09:32)
[2021-08-27] MEDS: Amlodipine 10 MG TAB PO SCH (09:32)
[2021-08-27] MEDS: Aspirin 81 mg Enteric Coated Tablet PO SCH (09:33)
[2021-08-27] MEDS: NEXIUM 20 MG PO SCH (09:33)
[2021-08-27 09:44] LABS: Anion Gap 21 mmol/L (10-20); BUN (Urea Nitrogen) 33 mg/dL (9.8-20.1); Calc. Creatinine Clearance 19 mL/min (70-130); Calcium 9.7 mg/dL (7.8-10.44); Carbon Dioxide 26 mmol/L (23-31); Chloride 94 mmol/L (98-107); Glucose 162 mg/dL (83-110); Potassium 3.7 mmol/L (3.5-5.1); Sodium 137 mmol/L (136-145)
[2021-08-28] MEDS: Furosemide 40 MG/4 ML VIAL SLOW IVP SCH (06:00)
[2021-08-28] MEDS: Levothyroxine Sodium 88 MCG TAB PO SCH (06:00)
[2021-08-28] MEDS: Gabapentin 300 MG CAP PO SCH (09:13)
[2021-08-28] MEDS: Amlodipine 10 MG TAB PO SCH (09:13)
[2021-08-28] MEDS: Atorvastatin Calcium 40 MG TAB PO SCH (09:13)
[2021-08-28] MEDS: Aspirin 81 mg Enteric Coated Tablet PO SCH (09:13)
[2021-08-28] MEDS: hydrALAZINE 25 MG TAB PO SCH (09:14)
[2021-08-28 09:15] LABS: #Basophils 0.1 10x3/uL (0.0-0.2); #Eosinphils 0.1 10x3/uL (0.0-0.5); #Monocytes 0.5 10x3/uL (0.0-1.1); #Neutrophils 2.9 10x3/uL (1.5-8.4); %Basophils 1.7 % (0.0-2.0); %Eosinophils 1.4 % (0.0-6.0); %Lymphocytes 14.7 % (18.0-47.0); %Monocytes 11.1 % (0.0-10.0); %Neutrophils 70.6 % (40.0-75.0); Mean Corpuscular HGB CONC 31.4 g/dL (32.0-36.0); Mean Corpuscular Hemoglobin 26.8 pg (27.0-33.0); Mean Corpuscular Volume 85.2 fl (81.6-98.3); Mean Platelet Volume 9.8 fl (7.4-10.4); Platelet Count 246 10x3/uL (150-450); RBC Distribution Width 17.2 % (11.5-14.5); Red Blood Cell (RBC) Count 4.11 10x6/uL (3.90-5.03); White Blood Cell (WBC) Count 4.2 10x3/uL (3.5-10.5)
[2021-08-28 09:17] LABS: Anion Gap 15 mmol/L (10-20); BUN (Urea Nitrogen) 32 mg/dL (9.8-20.1); Calc. Creatinine Clearance 21 mL/min (70-130); Carbon Dioxide 30 mmol/L (23-31); Chloride 91 mmol/L (98-107); Glucose 124 mg/dL (83-110); Potassium 3.4 mmol/L (3.5-5.1); Sodium 133 mmol/L (136-145)
[2021-08-28] MEDS: NEXIUM 20 MG PO SCH (09:17)
[2021-08-28] MEDS: Empagliflozin 10 MG TAB PO SCH (09:17)
[2021-08-28] MEDS ORDERED: Potassium Chloride 20 MEQ TAB PO SCH (10:15)
[2021-08-28 13:22] VITALS: BP 112/59; TEMP 98.1
== END 2021-08-28 14:19 | DRG 291 ==
LOC: SUATTDRO 14:55 → CSHERS 14:55 → OBSVTOIN 19:57 → CSHTELE 19:57
PROVIDERS: ADMIT Family Medicine; ATTEND Internal Medicine
DX: I13.0 Hypertensive heart and chronic kidney disease with heart failure and stage 1 through stage 4 chronic kidney disease, or unspecified chronic kidney disease (principal); I50.33 Acute on chronic diastolic (congestive) heart failure; J96.21 Acute and chronic respiratory failure with hypoxia; N17.9 Acute kidney failure, unspecified; J44.9 Chronic obstructive pulmonary disease, unspecified; E11.22 Type 2 diabetes mellitus with diabetic chronic kidney disease; E78.5 Hyperlipidemia, unspecified; Z66 Do not resuscitate; E03.9 Hypothyroidism, unspecified; N18.30 Chronic kidney disease, stage 3 unspecified; I25.10 Atherosclerotic heart disease of native coronary artery without angina pectoris; D63.1 Anemia in chronic kidney disease; M81.0 Age-related osteoporosis without current pathological fracture; I07.1 Rheumatic tricuspid insufficiency; R53.1 Weakness; Z20.822 Contact with and (suspected) exposure to COVID-19; Z96.642 Presence of left artificial hip joint; Z60.2 Problems related to living alone; Z98.890 Other specified postprocedural states; Z86.73 Personal history of transient ischemic attack (TIA), and cerebral infarction without residual deficits; Z79.899 Other long term (current) drug therapy; Z79.82 Long term (current) use of aspirin; Z99.81 Dependence on supplemental oxygen; Z79.890 Hormone replacement therapy; Z87.891 Personal history of nicotine dependence; Z90.49 Acquired absence of other specified parts of digestive tract; Z90.710 Acquired absence of both cervix and uterus
CPT/HCPCS: 36415; 36430; 71045; 76770; 80048; 80053; 81003; 83735; 83880; 84100; 84439; 84443; 84484; 85025; 86850; 86900; 86901; 93005; 94760; 96374; C9113; J1650; J1940; J3475; P9016; U0002